=== PATIENT | female | born 1965 ===

== ENCOUNTER → 2022-10-24 | Outpatient (CLI) | payer OTHER ==
--- NOTE | 2022-10-24 13:56 | XR ---
EXAMINATION TYPE: XR ankle complete RT DATE OF EXAM: 10/24/2022 COMPARISON: None HISTORY: Pain fall TECHNIQUE: 3 view right ankle FINDINGS: Ankle mortise is intact. No acute fracture or dislocation is evident. Plantar calcaneal lamin l spur is present. Soft tissues are normal. Follow-up exams can be performed 7-10 days from acute trauma for continued pain. IMPRESSION: 1. No acute osseous abnormality right ankle.
--- NOTE | 2022-10-24 13:57 | XR ---
EXAMINATION TYPE: XR hand complete RT DATE OF EXAM: 10/24/2022 COMPARISON: None HISTORY: Fall, pain TECHNIQUE: 3 view right hand FINDINGS: No acute fracture or dislocation is evident. Joint spaces are preserved soft tissues are no rmal. Follow up exams can be performed 7-10 days from acute trauma for continued pain. IMPRESSION: 1. No acute osseous abnormality right hand
--- NOTE | 2022-10-24 14:00 | XR ---
EXAMINATION TYPE: XR wrist complete RT DATE OF EXAM: 10/24/2022 COMPARISON: None HISTORY: Tripped and fall pain TECHNIQUE: 4 view right wrist FINDINGS: There is a subtle lucency within the metaphyseal radius. Cortical step-off is present poste riorly. No angulation is evident. Diffuse soft tissue swelling is present over the wrist. Follow up exams can be performed 7-10 days from acute trauma for continued pain. Estimated bone scan could be performed pain at the anatomic snuff box. IMPRESSION: 1. Nondisplaced transverse fracture distal metaphyseal radius
--- NOTE | 2022-10-24 14:05 | XR ---
EXAMINATION TYPE: XR knee complete RT DATE OF EXAM: 10/24/2022 COMPARISON: None HISTORY: Tripped and fall TECHNIQUE: 3 view right knee FINDINGS: There is a small joint effusion. No acute fracture or dislocation is evident. Joint spaces preserved. Follow up exams can be performed 7-10 days from acute trauma for continued pain IMPRESSION: 1. No acute osseous abnormality. 2. Small joint effusion
--- NOTE | 2022-10-24 14:06 | XR ---
EXAMINATION TYPE: XR shoulder complete LT DATE OF EXAM: 10/24/2022 COMPARISON: NONE HISTORY: Pain TECHNIQUE: Shoulder examined in 3 projections. FINDINGS: The humeral head articulates with the glenoid. The acromio-clavicular junction is normal. No acute fractures or dislocations are evident. A follow up study can be performed 7-10 days from acute trauma for continued pain. MRI can be perfor med if soft tissue evaluation would be of benefit. IMPRESSION: 1. No acute osseous shoulder abnormality.
== END | disposition home or self-care (01) ==
LOC: RADXRMAIN 12:53
PROVIDERS: ATTEND Emergency Medicine
DX: S43.401A Unspecified sprain of right shoulder joint, initial encounter (principal); S60.211A Contusion of right wrist, initial encounter; S80.01XA Contusion of right knee, initial encounter; S93.401A Sprain of unspecified ligament of right ankle, initial encounter; S52.591A Other fractures of lower end of right radius, initial encounter for closed fracture; M25.461 Effusion, right knee; W01.0XXA Fall on same level from slipping, tripping and stumbling without subsequent striking against object, initial encounter; X58.XXXA Exposure to other specified factors, initial encounter

== ENCOUNTER → 2022-10-26 | Outpatient (CLI) | payer OTHER ==
--- NOTE | 2022-10-26 15:41 | XR ---
EXAMINATION TYPE: XR humerus LT DATE OF EXAM: 10/26/2022 3:02 PM INDICATION: Patient age:Female; 56 years old; Reason for study: S43.402D; COMPARISON: None TECHNIQUE: The left humerus was examined in frontal and lateral projections. FINDINGS: No evidence of acute osseous pathology, joint dislocation, or soft tissue swelling. The rem aining portions of the visualized chest are unremarkable. IMPRESSION: No acute osseous pathology.
== END | disposition home or self-care (01) ==
LOC: RADXRMAIN 14:40
PROVIDERS: ATTEND Emergency Medicine
DX: S43.402D Unspecified sprain of left shoulder joint, subsequent encounter (principal); X58.XXXD Exposure to other specified factors, subsequent encounter

== ENCOUNTER → 2022-10-31 | Outpatient (CLI) | payer OTHER ==
--- NOTE | 2022-10-31 15:27 | XR ---
EXAMINATION TYPE: XR knee complete RT DATE OF EXAM: 10/31/2022 COMPARISON: NONE HISTORY: 56-year-old female S80.01XD TECHNIQUE: 3 views FINDINGS: Uqlvd-ow-zwwksesf knee joint effusion. Anterior soft tissue swelling. Extensor mechanism appears inta ct. No acute fracture, subluxation, or dislocation seen. IMPRESSION: No acute osseous abnormality is seen. However, there is a hcnbr-pf-pvxbtzpi knee joint effusion and m ild anterior soft tissue swelling. If concern for internal derangement, MRI can be performed.
== END | disposition home or self-care (01) ==
LOC: RADXRMAIN 15:01
PROVIDERS: ATTEND Emergency Medicine
DX: S80.01XD Contusion of right knee, subsequent encounter (principal); X58.XXXD Exposure to other specified factors, subsequent encounter

== ENCOUNTER → 2022-11-22 | Outpatient (CLI) | payer OTHER ==
--- NOTE | 2022-11-23 08:59 | XR ---
EXAMINATION TYPE: XR forearm RT DATE OF EXAM: 11/22/2022 4:18 PM CLINICAL INDICATION:Female, 57 years old with history of S60.211D; [facility] COMPARISON: 11/22/2022 TECHNIQUE: The right forearm was examined in AP and lateral projections. FINDINGS: Stable anatomic alignment of the distal radius fracture. Cast in place. No new acute osseou s pathology, soft tissue swelling or joint dislocations are seen. IMPRESSION: Stable alignment of the distal radius fracture. No new fractures.
--- NOTE | 2022-11-23 09:00 | XR ---
EXAMINATION TYPE: XR wrist complete RT DATE OF EXAM: 11/22/2022 4:18 PM CLINICAL INDICATION:Female, 57 years old with history of S60.211D; COMPARISON: 10/23/2022 TECHNIQUE: right wrist was examined in the. Frontal, navicular, lateral, and oblique. FINDINGS: No acute osseous pathology, joint dislocation, or joint effusion. No evidence of any soft tissue swelling is seen. Stable alignment of prior distal right radius fracture. Has been interval he aling changes of both fracture sites. IMPRESSION: Stable fracture alignment of the distal radius fracture..
== END | disposition home or self-care (01) ==
LOC: RADXRMAIN 15:59
PROVIDERS: ATTEND Emergency Medicine
DX: S52.501A Unspecified fracture of the lower end of right radius, initial encounter for closed fracture (principal); S60.211D Contusion of right wrist, subsequent encounter; Y99.9 Unspecified external cause status

== ENCOUNTER → 2023-01-16 | Outpatient (CLI) | payer OTHER ==
--- NOTE | 2023-01-20 21:09 | MR ---
EXAMINATION TYPE: MR shoulder LT wo con DATE OF EXAM: 01/16/2023 COMPARISON: Outside radiograph 01/07/2023 HISTORY: 57-year-old female M25.512, Left shoulder pain S/P injury October 2022. TECHNIQUE: Multiplanar, multisequence imaging of the left shoulder is performed without contrast. FINDINGS: Severe tendinosis and extensive intrasubstance tear involving the intracapsular portion of the long h ead biceps tendon. Contiguous tear at the biceps anchor. There is significant tear involving the superior half of the subscapularis tendon. Some of the inferi or articular sided fibers remain intact. There is bursal sided fraying throughout the supraspinatus tendon. Scattered areas of intrasubstance changes present. There is a intrasubstance tear measuring 1.0 cm long by 0.7 cm AP involving the mid supraspinatus tendon with a ganglion cyst measuring up to 5.0 cm long and 0.7 cm wide extending along the myotendinous junction of the infraspinatus muscle. No high-grade partial or full-thickness tear is identified at this time. No atrophy of the rotator cuff musculature. Mild thinning of superior humeral head articular cartilage within the glenohumeral joint otherwise in tact. Physiologic joint fluid. Moderate effusion within the anterior subacromial/subdeltoid bursa. No Hill-Sachs deformity or os acromiale. No suspicious bone marrow replacement. IMPRESSION: 1. Diffuse rotator cuff tendinosis. Significant tear involving the superior half of the subscapularis tendon. Some of the inferior articular sided fibers remain intact. 2. Additional large intrasubstance tear of the mid supraspinatus tendon measuring 1.0 x 0.7 cm. Gangl ion cyst measuring up to 5.0 cm long and 0.7 cm wide extending along the infraspinatus myotendinous j unction likely relating to this tear and intertwining fibers. 3. Bursal sided fraying throughout the supraspinatus and infraspinatus tendons. No rotator cuff muscl e atrophy. 4. Severe tendinosis and extensive interstitial tear involving the intracapsular portion of the long head biceps tendon. Contiguous labral tear at the biceps anchor.
== END | disposition home or self-care (01) ==
LOC: RADMRIMAIN 12:53
PROVIDERS: ATTEND Orthopaedic Surgery
DX: M67.814 Other specified disorders of tendon, left shoulder (principal); M75.112 Incomplete rotator cuff tear or rupture of left shoulder, not specified as traumatic; M67.412 Ganglion, left shoulder

== ENCOUNTER 2023-02-15 05:51 | Day surgery (SDC) | payer OTHER ==
--- NOTE | 2023-02-14 08:38 | P.HPOR ---
History of Present Illness H&P Date: 02/14/23 Chief Complaint: Left shoulder pain The patient is a 57-year-old erctu-yvas-kchwducy female who presents after injuring her left shoulder at work in October of this year. She notes anterior and lateral pain with any overhead use and at night ever since. She denies previous problems. Review of Systems As per HPI Past Medical History Past Medical History: Diabetes Mellitus, Hyperlipidemia, Osteoarthritis (OA) History of Any Multi-Drug Resistant Organisms: None Reported Past Surgical History: Orthopedic Surgery, Tubal Ligation Additional Past Surgical History / Comment(s): Rt. CTR, left hand surgery Past Anesthesia/Blood Transfusion Reactions: No Reported Reaction Smoking Status: Never smoker - Past Family History Father Family Medical History: Diabetes Mellitus, Hypertension Mother Family Medical History: Diabetes Mellitus, Hyperlipidemia, Hypertension Medications and Allergies Home Medications Medication Instructions Recorded Confirmed Type Amitriptyline HCl 10 mg PO HS 02/13/23 02/13/23 History Insulin Detemir (Levemir) [Levemir] 40 units SQ HS 02/13/23 02/13/23 History Meloxicam [Mobic] 15 mg PO DAILY 02/13/23 02/13/23 History Rosuvastatin Calcium 40 mg PO HS 02/13/23 02/13/23 History metFORMIN HCL 1,000 mg PO DAILY 02/13/23 02/13/23 History sitaGLIPtin [Januvia] 100 mg PO DAILY 02/13/23 02/13/23 History Allergies Allergy/AdvReac Type Severity Reaction Status Date / Time Penicillins Allergy Rash/Hives Verified 02/13/23 14:02 Physical Examination - Shoulder left Tenderness with palpation: anterior, bicipital groove Pain: with abduction, with forward flexion ROM: forward flexion: 140 degrees ROM: internal rotation: lower lumbar ROM: external rotation: 50 degrees Crepitus with motion: Yes Strength: abduction: 5/5 Strength: external rotation: 5/5 Tests: internal impingement tests: positive, external impingment tests: positive Results She is a well-developed well-nourished female proximal 5 foot 3, 130 pounds of mesomorphic habitus. HEENT exam is nonfocal, neck supple. She's tender about the anterior subacromial space of the left shoulder. She has moderate subacromial crepitus. Acharya, Neer's sign, and speed test are positive. She has pain with liftoff. Her distal neurovascular appears intact in the left upper extremity. - Diagnostic results Shoulder MRI: image reviewed (Left shoulder MRI shows evidence of a tear involving the scapularis and addition to an intrasubstance tear involving the supraspinatus.) Assessment and Plan Assessment: Left rotator cuff tearacute/SLAP lesion Plan: I talked the patient length regarding her condition along with treatment options. At this point she is quite symptomatic after this acute injury. After a thorough discussion she opted to proceed with surgery. We'll plan to proceed with left shoulder arthroscopy with probable subacromial decompression, rotator cuff debridement versus repair, possible biceps tenotomy versus tenodesis. Risks and benefits were discussed at length in layman's terms. We will likely perform that as an outpatient procedure.
[2023-02-15] MEDS ORDERED: LIDOCAINE 1% (10MG/ML) FOR IV START INTRADERMA PRN (06:11)
[2023-02-15] MEDS ORDERED: LACTATED RINGERS 1,000 ML IV SCH ×2 (06:11)
[2023-02-15] MEDS ORDERED: droPERidol 5 MG/2 ML VIAL IVP ONE (06:11)
[2023-02-15] MEDS ORDERED: ONDANSETRON 4 MG/2 ML VIAL IVP ONE (06:11)
[2023-02-15] MEDS ORDERED: DEXAMETHASONE SOD PHOSPHATE 4 MG/ML 1 ML VIAL IV ONE (06:11)
[2023-02-15 06:42] LABS: Glucose,Whole Blood 147 mg/dL (70-110)
[2023-02-15] MEDS ORDERED: MIDAZOLAM 2 MG/2 ML VIAL IVP ONE (06:46)
[2023-02-15] MEDS ORDERED: HYDROmorphone 0.5 MG/0.5 ML SYRINGE IVP PRN (07:00)
[2023-02-15] MEDS ORDERED: fentaNYL (PF) 50 MCG/ML 2 ML AMP ONE (07:35)
[2023-02-15] MEDS ORDERED: WATER FOR INJECTION, STERILE 10 ML VIAL IV ONE (07:35)
[2023-02-15] MEDS ORDERED: PROPOFOL 10 MG/ML 20 ML VIAL IV ONE (07:35)
[2023-02-15] MEDS ORDERED: ePHEDrine 50 MG/ML 1 ML VIAL ONE (07:35)
[2023-02-15] MEDS ORDERED: LIDOCAINE 1% INJ 10MG/ML (20 ML MDV) ONE (07:35)
[2023-02-15] MEDS ORDERED: PHENYLEPHRINE 10 MG/ML VIAL ONE (07:35)
[2023-02-15] MEDS ORDERED: ROPIVACAINE 5 MG/ML 30 ML VIAL ONE (07:35)
[2023-02-15] MEDS ORDERED: SUCCINYLCHOLINE CHLORIDE 200 MG/10 ML VIAL IV ONE (07:35)
[2023-02-15 07:36] VITALS: RESP 16
[2023-02-15] MEDS ORDERED: EPINEPHrine (PF) 1 ML in SODIUM CHLORIDE 0.9% IRRIGATIO 3,000 ML IRRIGATION ONE ×8 (08:04)
--- NOTE | 2023-02-15 08:14 | P.ANPRN ---
Procedure Note - Anesthesia - Nerve Block Performed Left Interscalene Single Time Out Performed: Yes ([id number]) Date of Procedure: 02/15/23 Procedure Start Time: : Procedure Stop Time: :40 Location of Patient: PreOp Indication: Acute Post-Operative Pain, Dx/Pain Location, Requested by Surgeon Sedation Type: Sedate with meaningful contact maintained Preparation: Sterile Prep Position: Supine Catheter: None Needle Types: Pajunk Needle Gauge: 21 Ultrasound used to visualize needle placement: Yes Ultrasound used to observe medication spread: Yes Injectate: 0.5% Ropivacaine (see comment for volume) (20 ml with 4mg dexamethasone) Blood Aspirated: No Pain Paresthesia on Injection Noted: No Resistance on Injection: Normal Image Stored and Saved: Yes Events: Uneventful and Well Tolerated
--- NOTE | 2023-02-15 08:39 | P.OP ---
Date of Procedure: 02/15/23 Preoperative Diagnosis: Left rotator cuff strain/partial thickness tear Postoperative Diagnosis: Upper one fourth partial-thickness tear subscapularis left shoulder Procedure(s) Performed: Left shoulder arthroscopic subacromial decompression/rotator cuff debridement Anesthesia: zaheer IVEY Surgeon: Leon Millan Pollution Control Chemist #1: Malcom Foster Estimated Blood Loss (ml): 10 Pathology: none sent Condition: stable Disposition: PACU Indications for Procedure: The patient is a 57-year-old female who presents after an injury at work involving her left shoulder who presented with persistent pain and weakness after an acute injury. A discussion of the risks and benefits of operative intervention versus continued conservative measures was made with the patient. She opted to proceed with surgery. Operative risks to include infection, neurovascular injury, development of blood clots, possible incomplete resolution of symptoms, possible worsening of symptoms and need for subsequent procedures was discussed. Informed consent was obtained. Operative Findings: As below Description of Procedure: The patient was brought to the operating room, and after induction of general anesthesia was placed in a beachchair position. A preoperative interscalene block was placed for postoperative analgesia. I examined the left shoulder. There was no gross block to passive motion or gross glenohumeral instability. The left upper extremity was prepped and draped in normal fashion. The bony outlines the acromion, distal clavicle, and coracoid process were outlined with a skin marker. The glenohumeral joint was inflated with 50 mL of saline utilizing a spinal needle from posterior approach. A posterior portal was made through a 5 mm skin incision 1 cm medial and inferior to the posterior lateral border time. A blunt trocar was used to easily into the joint. Diagnostic arthroscopy was performed. An anterior portal was made just lateral to the coracoid process entering the joint above the subscapularis tendon. The subscapularis tendon was inspected and the upper one fourth partial-thickness tear was noted. This was debrided back to stable base with a motorized shaver. Remaining subscapularis was probed and a push pull test was performed. I felt this was stable and intact. Anterior labrum was intact. The inferior recess was inspected. The posterior labrum was intact. The biceps and its anchor appear to be intact. On inspection the rotator cuff, it was intact on the articular surface. The arthroscope was placed into the subacromial space. A lateral portal was made 2 centimeters inferior to the anterior lateral border of the acromion. The soft tissue on the undersurface of the acromion was debrided with a motorized shaver and electrocautery clearly defining the anteri or medial and lateral borders as well as the distal clavicle. An anterior inferior acromioplasty was performed with a motorized chet starting anterolateral, then extending this posteriorly, then extending this medially. I converted to a flat acromion and this was verified in the posterior and lateral viewing portals. There was significant bursal thickening that was debrided with a motorized shaver. The rotator cuff appeared to be intact on the bursal surface. The arthroscope was then removed. The portals were closed with simple 3-0 nylon sutures. A sterile dressing was applied in addition to a sling. The patient was then awoken from general anesthesia and transferred to recovery room in good condition. Blood loss was estimated at 10 mL. No complications were incurred. Sponge and needle counts were correct in the case. Malcom AVITIA assisted and the major components of the case to include arm positioning, decompression, and closure.
[2023-02-15 09:17] VITALS: TEMP 97.2
[2023-02-15] MEDS ORDERED: LACTATED RINGERS 1,000 ML IV ONE (09:22)
[2023-02-15 17:12] VITALS: BP 124/73; PULSE 70
== END 2023-02-15 11:12 | disposition home or self-care (01) ==
LOC: OR 05:51
PROVIDERS: ATTEND Orthopaedic Surgery
DX: S46.012A Strain of muscle(s) and tendon(s) of the rotator cuff of left shoulder, initial encounter (principal); G89.18 Other acute postprocedural pain; E11.9 Type 2 diabetes mellitus without complications; E78.5 Hyperlipidemia, unspecified; M19.012 Primary osteoarthritis, left shoulder; Z98.51 Tubal ligation status; Z82.49 Family history of ischemic heart disease and other diseases of the circulatory system; Z83.3 Family history of diabetes mellitus; Z83.49 Family history of other endocrine, nutritional and metabolic diseases; Z79.4 Long term (current) use of insulin; Z79.84 Long term (current) use of oral hypoglycemic drugs; Z88.0 Allergy status to penicillin; X58.XXXA Exposure to other specified factors, initial encounter
CPT/HCPCS: 64415; 29826; 29822; J2250; J1100; J0690; J2405; J0171